=== PATIENT | male | born 1985 ===

== ENCOUNTER 2025-02-26 13:51 | Outpatient (CLI) | payer OTHER ==
[2025-03-01 09:10] LABS: ESTRADIOL SERUM 30.0 pg/mL (7.6-42.6); LEUTEINIZING HORMONE 28.4 mIU/mL (1.7-8.6); PROLACTIN 10.4 ng/mL (3.9-22.7)
[2025-03-03 17:08] LABS: T T 347.0 ng/dL (264-916); test free 7.7 pg/mL (8.7-25.1)
== END 2025-02-26 13:57 | disposition home or self-care (01) ==
LOC: LAB 13:51
DX: N46.9 Male infertility, unspecified (principal); E23.6 Other disorders of pituitary gland